=== PATIENT | female | born 1945 | race Caucasian/White ===

== ENCOUNTER 2020-11-18 07:41 | Day surgery (SDC) | payer MEDICARE, OTHER ==
[2020-11-18] MEDS ORDERED: LACTATED RINGERS 1,000 ML IV ONE ×2 (08:00→10:17)
[2020-11-18] MEDS ORDERED: fentaNYL 100 MCG/2 ML VIAL ONE ×2 (09:19→10:08)
[2020-11-18] MEDS ORDERED: MIDAZOLAM 2 MG/2 ML VIAL ONE (09:19)
[2020-11-18 10:53] VITALS: BP 94/45
== END 2020-11-18 07:42 | disposition home or self-care (01) ==
LOC: SDS 07:41
PROVIDERS: ATTEND Surgery
DX: Z12.11 Encounter for screening for malignant neoplasm of colon (principal); Z86.010 Personal history of colon polyps; K64.8 Other hemorrhoids; J44.9 Chronic obstructive pulmonary disease, unspecified; Z86.61 Personal history of infections of the central nervous system; Z87.01 Personal history of pneumonia (recurrent)
CPT/HCPCS: G0105; J7120

== ENCOUNTER 2021-09-13 08:00 | Outpatient (CLI) | payer MEDICARE, OTHER | END 2021-09-13 23:59 | disposition home or self-care (01) | LOC: LAB.N 08:00 | PROVIDERS: ATTEND Nurse Practitioner | DX: N39.0 Urinary tract infection, site not specified (principal) | CPT/HCPCS: 87086; 87181 ==

== ENCOUNTER 2021-09-24 08:00 | Outpatient (CLI) | payer MEDICARE, OTHER | END 2021-09-24 23:59 | disposition home or self-care (01) | LOC: LAB.N 08:00 | PROVIDERS: ATTEND Nurse Practitioner | DX: R35.0 Frequency of micturition (principal) | CPT/HCPCS: 87086 ==

== ENCOUNTER 2022-07-18 08:00 | Outpatient (CLI) | payer MEDICARE, OTHER | END 2022-07-18 23:59 | disposition home or self-care (01) | LOC: LAB.N 08:00 | PROVIDERS: ATTEND Nurse Practitioner | DX: R30.0 Dysuria (principal) | CPT/HCPCS: 87086 ==

== ENCOUNTER 2022-07-25 08:30 | Outpatient (CLI) | payer MEDICARE, OTHER ==
[2022-07-27 19:33] LABS: BACTERIAL VAGINOSIS DNA NEGATIVE (NEGATIVE); CANDIDA GLABRATA DNA NEGATIVE (NEGATIVE); CANDIDA GROUP DNA NEGATIVE (NEGATIVE); CANDIDA KRUSEI DNA NEGATIVE (NEGATIVE); TRICHOMONAS VAGINALIS DNA NEGATIVE (NEGATIVE)
== END 2022-07-25 08:45 | disposition home or self-care (01) ==
LOC: LAB.N 08:30
PROVIDERS: ATTEND Physician Assistant Medical
DX: R30.0 Dysuria (principal)
CPT/HCPCS: 81514; 87077; 87086

== ENCOUNTER 2022-08-03 08:00 | Outpatient (CLI) | payer MEDICARE, OTHER ==
[2022-08-03 19:55] LABS: BACTERIAL VAGINOSIS DNA NEGATIVE (NEGATIVE); CANDIDA GLABRATA DNA NEGATIVE (NEGATIVE); CANDIDA GROUP DNA NEGATIVE (NEGATIVE); CANDIDA KRUSEI DNA NEGATIVE (NEGATIVE); TRICHOMONAS VAGINALIS DNA NEGATIVE (NEGATIVE)
== END 2022-08-03 23:59 | disposition home or self-care (01) ==
LOC: LAB.N 08:00
PROVIDERS: ATTEND Registered Nurse
DX: R10.2 Pelvic and perineal pain (principal); R35.0 Frequency of micturition
CPT/HCPCS: 81514; 87086

== ENCOUNTER 2023-03-22 14:26 | Outpatient (CLI) | payer MEDICARE, OTHER ==
[~2023-03-22 14:26] MED LIST: GADOTERATE MEGLUMINE 5 MMOL/10 ML VIAL ONE
[2023-03-22 15:24] LABS: CREATININE 0.7 mg/dL (0.6-1.3)
[2023-03-22] MEDS ORDERED: GADOTERATE MEGLUMINE 5 MMOL/10 ML VIAL IVP ONE (18:53)
--- NOTE | 2023-03-23 11:21 | MRI Report ---
PROCEDURE: LUMBAR SPINE W/WO INDICATIONS: PUDENDAL NEURALGIA CONTRAST: 9.2ml Clariscan TECHNIQUE: Noncontrast sagittal T1 spin echo and T2 fast spin echo, sagittal STIR, axial T1 and T2 fast spin ech o through the lumbar spine. In cases with scoliosis, additional coronal T2 fast spin echo may be per formed. After the administration of contrast, sagittal and axial T1 spin echo with fat saturation th rough the lumbar spine. COMPARISON: None. FINDINGS: Image quality: Motion artifact is noted. Alignment and curvature: There is mild to moderate dextroconvex thoracolumbar scoliosis. Minimal ret rolisthesis can be seen at T12-L1 and L1-L2. Mild grade 1 anterolisthesis is seen at L4-L5. Moderate grade 1 anterolisthesis is seen at L5-S1. Bilateral pars defects can be seen at L5. Marrow: Marrow is of normal overall signal. No acute vertebral body compression fractures. No susp icious marrow enhancement. Spinal cord: Conus medullaris terminates at the L1 level. Visualized spinal cord demonstrates dea l signal, without suspicious enhancement. Paraspinous soft tissues: No paravertebral masses or abnormal enhancement. There is a water signal, nonenhancing cyst is seen at the superior aspect of the right kidney. T11-T12: Moderate loss of disc height and signal are seen. No neural foraminal narrowing or central canal narrowing can be seen. T12-L1: Moderate loss of disc height and signal are seen. Reactive marrow endplate changes are seen, which demonstrate mixed signal and are attributed to a combination of edema and fatty metaplasia (Mo dic type I and Modic type II changes). There is a mild degree of endplate enhancement seen, which is attributed to degenerative enhancement. Mild to moderate disc bulge is seen, which is eccentric to t he left. There is mild to moderate left-sided and minimal right-sided facet hypertrophy. There is mod erate left-sided and no right-sided neuroforaminal narrowing. No significant central canal narrowing is seen. L1-L2: Moderate loss of disc height and signal are seen. Mild to moderate disc bulge is seen, whic h is eccentric to the right. Moderate facet hypertrophy is seen. At least moderate bilateral neurof oraminal narrowing can be seen. Mild central canal narrowing is seen. L2-L3: Mild loss of disc height and disc signal are seen. Mild disc bulge is seen. Moderate face t hypertrophy is seen. Associated hypertrophy of the ligamentum flavum can be seen. Moderate bilater al neural foraminal narrowing is seen. Mild to moderate central canal narrowing is seen. L3-L4: Mild loss of disc height and disc signal are seen. Mild to moderate disc bulge is seen, whic h is eccentric to the right. There is moderate right-sided and [id number] left-sided facet hype rtrophy. There is at least moderate left-sided and moderate to severe right-sided neuroforaminal narr owing. Compression is seen upon the exiting nerve roots. Mild to moderate central canal narrowing is seen. L4-L5: Moderate loss of disc height and signal are seen. Mild to moderate disc bulge is seen, which is eccentric to the right. A superimposed central disc protrusion is seen. Prominent facet hypertro phy can be seen. There is at least moderate right-sided and moderate left-sided neuroforaminal narrow ing. Compression is seen upon the exiting nerve roots. Moderate central canal narrowing is seen. L5-S1: The disc height is well-preserved. There is loss of disc signal seen. Moderate disc bulge i s seen at this level. Prominent facet hypertrophy is seen. Moderate to severe bilateral neural forami nal narrowing can be seen, with associated compression upon the exiting nerve roots. Minimal central canal narrowing is seen. IMPRESSION: Multiple levels of significant lumbar spine degenerative change can be seen, which are overall worst inferiorly. Several sites of significant neuroforaminal narrowing can be seen, with associated exiting nerve root compression. No abnormal enhancement can be seen. Reviewed by: Dashawn Watkins MD on 03/23/2023 10:20 AM [facility] Approved by: Dashawn Watkins MD on 03/23/2023 10:20 AM [facility] Station ID: [id number]
--- NOTE | 2023-03-23 12:31 | MRI Report ---
PROCEDURE: PELVIS W/WO INDICATIONS: PUDENDAL NEURALGIA TECHNIQUE: Noncontrast axial T1 spin echo and STIR through the bony pelvis. Oblique axial and oblique coronal T1 spin echo and STIR through the sacrum. After the administration of intravenous contrast m aterial, fat-suppressed T1-weighted sequences were obtained in the axial, oblique axial, and oblique coronal planes. COMPARISON: None. FINDINGS: Bones: The sacroiliac joints appear intact. No adjacent bone marrow edema to suggest active sacroilii tis. No bony ankylosis. No suspicious marrow space occupying lesions. Inhomogeneous fat suppression i s noted in the lower anterior pelvis. Degenerative changes are seen at the pubic symphysis. Degenerat sierra changes are seen in the included portions of the lower lumbar spine as well as in the hips bilate rally. Soft tissues: Sacral nerve roots and visualized lumbosacral plexus are unremarkable. No presacral mas s. No soft tissue mass or abnormal enhancement is seen along the course of the pudendal nerves. Rectu m appears normal in caliber and wall thickness. No pathologic free pelvic fluid. Uterus is retroverte d. No suspicious adnexal mass. IMPRESSION: 1.No mass or extrinsic compression is seen along the course of the pudendal nerves or the lumbosacral plexus. 2.Degenerative changes in the spine, pubic symphysis, and bilateral hips. Reviewed by: En Sen MD on 03/23/2023 12:29 PM PST Approved by: En Sen MD on 03/23/2023 12:29 PM PST Station ID: [id number]
== END 2023-03-22 14:27 | disposition home or self-care (01) ==
LOC: LAB 14:26
PROVIDERS: ATTEND Obstetrics & Gynecology
DX: G58.8 Other specified mononeuropathies (principal); M16.0 Bilateral primary osteoarthritis of hip; M19.09 Primary osteoarthritis, other specified site; M47.816 Spondylosis without myelopathy or radiculopathy, lumbar region; M47.817 Spondylosis without myelopathy or radiculopathy, lumbosacral region; M48.061 Spinal stenosis, lumbar region without neurogenic claudication; M48.07 Spinal stenosis, lumbosacral region
CPT/HCPCS: 36415; 82565

== ENCOUNTER 2023-05-04 08:00 | Outpatient (CLI) | payer MEDICARE, OTHER ==
[2023-05-05 21:19] LABS: BACTERIAL VAGINOSIS DNA NEGATIVE (NEGATIVE); CANDIDA GLABRATA DNA NEGATIVE (NEGATIVE); CANDIDA GROUP DNA NEGATIVE (NEGATIVE); CANDIDA KRUSEI DNA NEGATIVE (NEGATIVE); TRICHOMONAS VAGINALIS DNA NEGATIVE (NEGATIVE)
== END 2023-05-04 23:59 | disposition home or self-care (01) ==
LOC: LAB.WC 08:00
PROVIDERS: ATTEND Obstetrics & Gynecology
DX: N76.0 Acute vaginitis (principal)
CPT/HCPCS: 81514

== ENCOUNTER 2023-09-27 08:00 | Outpatient (CLI) | payer MEDICARE, OTHER ==
[2023-09-27 16:52] LABS: BILIRUBIN,URINE NEGATIVE (NEGATIVE); GLUCOSE, URINE (UA) NEGATIVE (NEGATIVE); KETONES,URINE (UA) NEGATIVE (NEGATIVE); LEUKOCYTE ESTERASE, URINE SMALL (NEGATIVE); NITRITE,URINE NEGATIVE (NEGATIVE); OCCULT BLOOD,URINE NEGATIVE (NEGATIVE); PH,URINE 5.5 PH (5.0-7.5); PROTEIN,URINE NEGATIVE (NEGATIVE); UROBILINOGEN,URINE 0.2 (NORMAL) E.U./dL (NORMAL)
[2023-09-27 16:56] LABS: CLARITY,URINE HAZY (CLEAR)
[2023-09-27 17:19] LABS: RBC,URINE None Seen /HPF (0-5)
[2023-09-27 17:20] LABS: BACTERIA,URINE Few /HPF (None Seen); MUCUS,URINE Few Strands; SQUAMOUS EPITHELIAL CELL,UR FEW Squamous (<= Few)
== END 2023-09-27 23:59 | disposition home or self-care (01) ==
LOC: LAB.WC 08:00
PROVIDERS: ATTEND Obstetrics & Gynecology
DX: R30.0 Dysuria (principal)
CPT/HCPCS: 81001; 87086